=== PATIENT | male | born 1965 | race Caucasian/White ===

== ENCOUNTER 2018-05-14 20:28 | Emergency (ER) | payer OTHER ==
[~2018-05-14] VITALS: Ht 175.3 cm; Wt 98.5 kg
[2018-05-14 20:52] VITALS: BP 141/83; Ht 175.3 cm; Wt 98.5 kg
== END 2018-05-14 22:40 | disposition home or self-care (01) ==
LOC: ED 20:28
DX: M79.642 Pain in left hand (principal); M79.89 Other specified soft tissue disorders
CPT/HCPCS: 82962; J7512